=== PATIENT | female | born 1980 | race Asian ===

== ENCOUNTER 2018-11-01 10:17 | Outpatient (CLI) | payer OTHER ==
[2018-11-01 10:51] LABS: ALT (SGPT) 15 U/L (8-55); AST (SGOT) 16 U/L (5-34); Albumin 4.2 g/dL (3.5-5.0); Alkaline Phosphatase 36 U/L (40-150); Anion Gap 11 mmol/L (10-20); BUN (Urea Nitrogen) 14 mg/dL (7.0-18.7); Bilirubin, Total 0.5 mg/dL (0.2-1.2); Calc. Creatinine Clearance 0 mL/min (70-130); Calcium 9.6 mg/dL (7.8-10.44); Carbon Dioxide 26 mmol/L (22-29); Cardiac Risk 2.8 (Less than 4.5); Chloride 106 mmol/L (98-107); Cholesterol 198 mg/dl (< 200 Desired); Estimated GFR-MDRD 85; Globulin 3.2 g/dL (2.4-3.5); Glucose 91 mg/dL (70-105); HDL Cholesterol 71 mg/dL (>60 Neg Risk); LDL Cholesterol, Calculated 115 mg/dL; Potassium 4.2 mmol/L (3.5-5.1); Protein, Total 7.4 g/dL (6.0-8.3); Sodium 139 mmol/L (136-145); Triglycerides 61 mg/dL (Less than 150)
[2018-11-01 10:53] LABS: Troponin I Less than 0.010 ng/mL (< 0.028)
[2018-11-01 10:55] LABS: Bilirubin Negative (Negative); Blood, Urine Trace (Negative); Clarity Clear (Clear); Glucose, Urine (Dipstick) Negative (Negative); Leukocyte Small (Negative); Nitrite Negative (Negative); Protein, Urine (Dipstick) Negative (Neg-Trace); Urobilinogen 0.2 mg/dL (Less than 2)
--- NOTE | 2018-11-01 10:57 | RAD ---
CHEST 2 VIEWS: HISTORY: R70.9, intermittent chest pain for 2 months. FINDINGS: Heart size is normal. The lungs are clear. No pneumonia, edema, pleural effusion, or other acute in trathoracic disease. IMPRESSION: No acute intrathoracic disease. POS: C
[2018-11-01 11:20] LABS: RBC/HPF None Seen HPF (0-3)
[2018-11-01 11:21] LABS: Bacteria/HPF Rare-Few HPF (None Seen); WBC/HPF 0-3 HPF (0-3)
== END 2018-11-01 10:18 | disposition home or self-care (01) ==
LOC: SCSRAD 10:17
PROVIDERS: ATTEND Family Medicine
DX: Z00.00 Encounter for general adult medical examination without abnormal findings (principal); R07.9 Chest pain, unspecified
CPT/HCPCS: 36415; 71046; 80053; 80061; 81001; 84484